=== PATIENT | male | born 1980 | race Caucasian/White ===

== ENCOUNTER 2016-06-06 16:04 | Inpatient (IN) | payer OTHER ==
[2016-06-06 16:26] VITALS: BMI 19.8
--- NOTE | 2016-06-06 17:25 | HP ---
COWS - Scale Resting Pulse: 1= UT 81-100 Sweatin=Flushed/Facial Moisture Restless Observation: 3= Extraneous Movement Pupil Size: 1= Pupils >than Normal Bone or Joint Aches: 2= Severe Diffuse Aches Runny Nose/ Eye Tearin= Runny Nose/Eyes GI Upset > 30mins: 1= Stomach Cramp Tremor Observation: 1= Tremor [place], Not Seen Yawning Observation: 0= None Anxiety or Irritability: 2=Irritable/Anxious Goose Flesh Skin: 0=Smooth Skin COWS Score: 15 Admission ROS S - HPI Chief Complaint: I need help to stop using heroin . Allergies/Adverse Reactions: Allergies Allergy/AdvReac Type Severity Reaction Status Date / Time No Known Allergies Allergy Verified 06/06/16 16:42 History of Present Illness: 36 y/o m pt with h/o heroin dep x 6months seeking detox . Exam Limitations: No Limitations - Ebola screening Have you traveled outside of the country in the last 21 days: No Have you had contact with anyone from an Ebola affected area: No Have you been sick,other than usual withdrawal symptoms: No Do you have a fever: No - Review of Systems Constitutional: Loss of Appetite, Malaise, Changes in sleep, Weakness, Unintentional Wgt. Loss (5lbs x 1 month) EENT: reports: Blurred Vision, Nose Congestion Respiratory: reports: Shortness of Breath Cardiac: reports: No Symptoms Reported, Irregular Heart Rate GI: reports: Nausea, Indigestion, Abdominal cramping : reports: No Symptoms Reported Musculoskeletal: reports: Joint Pain, Muscle Pain, Muscle Weakness Integumentary: reports: Sweating Neuro: reports: Headache Endocrine: reports: No Symptoms Reported Hematology: reports: No Symptoms Reported Psychiatric: reports: Agitated, Anxious Other Systems: Reviewed and Negative Patient History - Patient Medical History Hx Anemia: No Hx Asthma: Yes Hx Chronic Obstructive Pulmonary Disease (COPD): No Hx Cancer: No Hx Cardiac Disorders: No Hx Congestive Heart Failure: No Hx Hypertension: No Hx Hypercholesterolemia: No Hx Pacemaker: No HX Cerebrovascular Accident: No Hx Seizures: No Hx Dementia: No Hx Diabetes: No Hx Gastrointestinal Disorders: No Hx Liver Disease: No Hx Genitourinary Disorders: No Hx Sexually Transmitted Disorders: No Hx Renal Disease (ESRD): No Hx Thyroid Disease: No Hx Human Immunodeficiency Virus (HIV): No (NEG 04/2016) Hx Hepatitis C: No Hx Depression: No Hx Suicide Attempt: No Hx Bipolar Disorder: No Hx Schizophrenia: No - Patient Surgical History Past Surgical History: No Hx Neurologic Surgery: No Hx Cataract Extraction: No Hx Cardiac Surgery: No Hx Lung Surgery: No Hx Breast Surgery: No Hx Breast Biopsy: No Hx Abdominal Surgery: No Hx Appendectomy: No Hx Cholecystectomy: No Hx Genitourinary Surgery: No Hx Section: No Hx Orthopedic Surgery: No Other Surgical History: spinal sx.CERVICAL FUSION Anesthesia Reaction: No - PPD History Previous Implant?: Yes Documented Results: Negative w/o proof PPD to be Administered?: Yes - Reproductive History Patient is a Female of Child Bearing Age (11 -55 yrs old): No - Smoking Cessation Smoking history: Current every day smoker Have you smoked in the past 12 months: Yes Aproximately how many cigarettes per day: 10 Cigars Per Day: 0 Hx Chewing Tobacco Use: No Initiated information on smoking cessation: Yes 'Breaking Loose' booklet given: 06/06/16 - Substance & Tx. History Hx Alcohol Use: No Hx Substance Use: Yes Substance Use Type: Heroin Hx Substance Use Treatment: Yes - Substances Abused Heroin Route: Inhalation Frequency: Daily Amount used: 1 bundle Age of first use: 2 Date of Last Use: 06/06/16 Family Disease History - Family Disease History Family History: Denies Admission Physical Exam S - Vital Signs Vital Signs: Vital Signs - 24 hr 06/06/16 16:24 Temperature 98.2 F Pulse Rate 88 Respiratory 18 Rate Blood Pressure 119/74 - Physical General Appearance: Yes: Appropriately Dressed, Thin, Irritable, Sweating, Anxious HEENTM: Yes: EOMI, Hearing grossly Normal, Normocephalic, Normal Voice, RAZ, Nasal Congestion, Rhinorrhea Respiratory: Yes: Chest Non-Tender, Lungs Clear, Normal Breath Sounds, No Respiratory Distress Neck: Yes: Supple, Trachea in good position, Other (well healed left ant . scar) Breast: Yes: Within Normal Limits Cardiology: Yes: Regular Rhythm, Regular Rate, S1, S2 Abdominal: Yes: Non Tender, Flat, Soft, Increased Bowel Sounds Genitourinary: Yes: Within Normal Limits Back: Yes: Within Normal Limits Musculoskeletal: Yes: Back pain, Muscle Pain Extremities: Yes: Tremors Neurological: Yes: technical support director II-XII NML intact, Fully Oriented, Alert, Normal Response Lymphatic: Yes: Within Normal Limits - Diagnostic (1) Opioid dependence with withdrawal Current Visit: Yes Status: Chronic (2) Nicotine dependence Current Visit: Yes Status: Chronic Qualifiers: Nicotine product type: cigarettes Substance use status: uncomplicated Qualified Code(s): F17.210 - Nicotine dependence, cigarettes, uncomplicated (3) H/O cervical spinal arthrodesis Current Visit: No Status: Chronic Cleared for Admission [facility] - Detox or Rehab [facility] Level of Care: Medically Managed Detox Regimen/Protocol: Methadone [facility] Breath Alcohol Content Breath Alcohol Content: 0 Urine Drug Screen - Results Drug Screen Negative: No Urine Drug Screen Results: OPI-Opiates, AMP-Amphetamines, OXY-Oxycodone
[2016-06-06] MEDS ORDERED: MENTHOL/PHENOL 1 EACH UD MM PRN (17:38)
[2016-06-06] MEDS ORDERED: MAGNESIUM HYDROX 2400MG/30ML ORAL SUSPENSION 30 ML CUP PO PRN (17:38)
[2016-06-06] MEDS ORDERED: MAG HYDROX/AL HYDROX/SIMETH 30 ML UNIT-DOSE CUP PO PRN (17:38)
[2016-06-06] MEDS ORDERED: hydrOXYzine PAMOATE 25 MG CAPSULE (FP) PO PRN (17:38)
[2016-06-06] MEDS ORDERED: NICOTINE POLACRILEX 4 MG GUM BC PRN (17:38)
[2016-06-06] MEDS ORDERED: MAGNESIUM CITRATE 300 ML BOTTLE PO PRN (17:38)
[2016-06-06] MEDS ORDERED: guaiFENesin/D-METHORPHAN HB 10 ML UNIT-DOSE CUPS PO PRN (17:38)
[2016-06-06] MEDS ORDERED: LOPERAMIDE HCL 2 MG CAPSULE PO PRN (17:38)
[2016-06-06] MEDS ORDERED: ACETAMINOPHEN 325 MG TABLET (FP) PO PRN (17:38)
[2016-06-06] MEDS ORDERED: IBUPROFEN 400 MG TABLET (FP) PO PRN (17:38)
[2016-06-06] MEDS ORDERED: ALBUTEROL SO4 6.7 GM HFA INHALER IH PRN (17:39)
[2016-06-06] MEDS ORDERED: METHADONE HCL 10 MG TABLET (FOR DETOX USE ONLY) PO ONE ×2 (18:30→23:00)
[2016-06-06] MEDS: diazePAM 5 MG TABLET PO PRN ×2 (18:34→22:36)
[2016-06-06] MEDS: P-EPHED 60MG/TRIPROLIDI 2.5MG TABLET PO PRN (18:36)
[2016-06-06] MEDS: diphenhydrAMINE HCL 50 MG CAPSULE PO PRN (22:35)
[2016-06-06] MEDS: THIAMINE HCL 100 MG TABLET (FP) PO SCH (22:36)
[2016-06-07] MEDS: diazePAM 5 MG TABLET PO PRN ×4 (05:57→22:10)
[2016-06-07] MEDS ORDERED: METHADONE HCL 10 MG TABLET (FOR DETOX USE ONLY) PO ONE (10:00)
[2016-06-07 10:17] LABS: MCH 31.3 pg (25.7-33.7); MEAN CELL VOLUME 91.9 fl (80-96); MEAN PLT VOLUME 7.9 fl (7.5-11.1); PLATELET COUNT 237 K/MM3 (134-434); RDW 13.1 % (11.9-15.9); WHITE BLOOD COUNT 7.2 K/mm3 (4.0-10.0)
[2016-06-07] MEDS: NICOTINE 21 MG/24 HOURS TOPICAL PATCH TD SCH (10:24)
[2016-06-07] MEDS: PRENATAL VITAMINS W/ FOLIC ACID TABLET (FP) PO SCH (10:24)
--- NOTE | 2016-06-07 10:38 | PN ---
BHS COWS - Scale Resting Pulse: 0= ID 80 or Below Sweatin=Flushed/Facial Moisture Restless Observation: 1= Difficult to Sit Still Pupil Size: 0= Normal to Room Light Bone or Joint Aches: 2= Severe Diffuse Aches Runny Nose/ Eye Tearin= Runny Nose/Eyes GI Upset > 30mins: 2= Nausea/Diarrhea Tremor Observation of Outstretched Hands: 2= Slight Tremor Visible Yawning Observation: 2= >3x During Session Anxiety or Irritability: 2=Irritable/Anxious Goose Flesh Skin: 3=Piloerection COWS Score: 18 BHS Progress Note (SOAP) Subjective: agitation anxiety sweats nasal congestion body aches Objective: 06/07/16 10:41 Vital Signs Temperature 97.2 F L 06/07/16 10:16 Pulse Rate 74 06/07/16 10:16 Respiratory Rate 20 06/07/16 10:16 Blood Pressure 112/70 06/07/16 10:16 O2 Sat by Pulse Oximetry (%) Laboratory Tests 06/07/16 07:00 WBC 7.2 RBC 4.79 Hgb 15.0 Hct 44.0 MCV 91.9 MCHC 34.0 RDW 13.1 Plt Count 237 MPV 7.9 labs pending awake/alert ambulating no acute distress Assessment: 06/07/16 10:41 withdrawal sx Plan: continue detox increase fluids labs pending
[2016-06-07 11:17] LABS: ALBUMIN 3.7 g/dl (3.4-5.0); ALK PHOS 75 U/L (45-117); ANION GAP 11 (8-16); BILIRUBIN,TOTAL 0.5 mg/dL (0.2-1.0); CALCIUM 9.6 mg/dL (8.5-10.1); CO2 27 mmol/L (21-32); CREATININE 0.9 mg/dL (0.7-1.3); GLUCOSE,RANDOM 83 mg/dL (74-106); SGOT/AST 17 U/L (15-37); SGPT/ALT 19 U/L (12-78); TOT PROT 7.1 g/dl (6.4-8.2)
[2016-06-07] MEDS ORDERED: PNEUMOC 13-VAL CONJ-DIP CRM/PF 0.5 ML DISP.SYRIN IM ONE (12:00)
[2016-06-07] MEDS ORDERED: PNEUMOCOCCAL 23 VACCINE 0.5 ML VIAL IM ONE (12:00)
[2016-06-07] MEDS ORDERED: INFLUENZA VACCINE 45 MCG/0.5 ML (MDV 16-17) IM ONE (12:00)
--- NOTE | 2016-06-07 13:51 | EKG ---
Test Reason : Blood Pressure : / mmHG Vent. Rate : 072 BPM Atrial Rate : 072 BPM P-R Int : 140 ms QRS Dur : 102 ms QT Int : 388 ms P-R-T Axes : 080 091 049 degrees QTc Int : 424 ms NORMAL SINUS RHYTHM POSSIBLE LEFT ATRIAL ENLARGEMENT RIGHTWARD AXIS PULMONARY DISEASE PATTERN ABNORMAL ECG NO PREVIOUS ECGS AVAILABLE Confirmed by SMOOTH ALMANZAR, FABIO ([id number]) on 06/07/2016 1:51:39 PM Referred By: Edy Nichols Confirmed By:FABIO REBOLLAR MD
[2016-06-07 14:14] LABS: URINE APPEARANCE SLCLOUDY; URINE BILIRUBIN NEGATIVE (NEGATIVE); URINE BLOOD NEGATIVE (NEGATIVE); URINE COLOR AMBER; URINE GLUCOSE (UA) NEGATIVE (NEGATIVE); URINE KETONE TRACE (NEGATIVE); URINE LEUK ESTERASE NEGATIVE (NEGATIVE); URINE NITRITE NEGATIVE (NEGATIVE); URINE UROBILINOGEN NEGATIVE E.U./dl (0.2-1.0)
[2016-06-07 14:24] LABS: URINE PROTEIN 1+ (NEGATIVE)
[2016-06-07 15:35] LABS: URINE HYALINE CAST 8 /lpf; URINE MUCUS MANY; URINE RBC 1 /hpf (0-3); URINE WBC 5 /hpf (3-5)
[2016-06-07] MEDS: THIAMINE HCL 100 MG TABLET (FP) PO SCH (22:10)
[2016-06-08] MEDS ORDERED: METHADONE HCL 5 MG TABLET (FOR DETOX USE ONLY) PO ONE (10:00)
[2016-06-08] MEDS: NICOTINE 21 MG/24 HOURS TOPICAL PATCH TD SCH (10:16)
[2016-06-08] MEDS: diazePAM 5 MG TABLET PO PRN ×2 (10:17→22:04)
[2016-06-08] MEDS: PRENATAL VITAMINS W/ FOLIC ACID TABLET (FP) PO SCH (10:17)
--- NOTE | 2016-06-08 11:48 | PN ---
S CIWA - CIWA Score Nausea/Vomitin Muscle Tremors: None Anxiety: 4-Mod. Anxious/Guarded Agitation: 1-Slight > Activity Paroxysmal Sweats: 3 Orientation: 4Disoriented Place/Person Tacttile Disturbances: 2-Mild Itch/Numbness/Burn Auditory Disturbances: 0-None Visual Disturbances: 1-Very Mild Sensitivity Headache: 0-None Present CIWA-Ar Total Score: 17 BHS Progress Note (SOAP) Subjective: Sweating, Chills, Body aches, Interrupted sleep. Objective: PT. A & O X 2 (DISORIENTED TO LOCATION). PT. OBSERVED AMBULATING ON UNIT. 06/08/16 11:46 Vital Signs Temperature 96.8 F L 06/08/16 09:48 Pulse Rate 72 06/08/16 09:48 Respiratory Rate 18 06/08/16 09:48 Blood Pressure 118/72 06/08/16 09:48 O2 Sat by Pulse Oximetry (%) Laboratory Last Values WBC 7.2 K/mm3 (4.0-10.0) 06/07/16 07:00 RBC 4.79 M/mm3 (4.00-5.60) 06/07/16 07:00 Hgb 15.0 GM/dL (11.7-16.9) 06/07/16 07:00 Hct 44.0 % (35.4-49) 06/07/16 07:00 MCV 91.9 fl (80-96) 06/07/16 07:00 MCHC 34.0 g/dl (32.0-35.9) 06/07/16 07:00 RDW 13.1 % (11.9-15.9) 06/07/16 07:00 Plt Count 237 K/MM3 (134-434) 06/07/16 07:00 MPV 7.9 fl (7.5-11.1) 06/07/16 07:00 Sodium 143 mmol/L (136-145) 06/07/16 07:00 Potassium 3.8 mmol/L (3.5-5.1) 06/07/16 07:00 Chloride 105 mmol/L (98-107) 06/07/16 07:00 Carbon Dioxide 27 mmol/L (21-32) 06/07/16 07:00 Anion Gap 11 (8-16) 06/07/16 07:00 BUN 10 mg/dL (7-18) 06/07/16 07:00 Creatinine 0.9 mg/dL (0.7-1.3) 06/07/16 07:00 Creat Clearance w eGFR > 60 (>60) 06/07/16 07:00 Random Glucose 83 mg/dL (74-106) 06/07/16 07:00 Calcium 9.6 mg/dL (8.5-10.1) 06/07/16 07:00 Total Bilirubin 0.5 mg/dL (0.2-1.0) 06/07/16 07:00 AST 17 U/L (15-37) 06/07/16 07:00 ALT 19 U/L (12-78) 06/07/16 07:00 Alkaline Phosphatase 75 U/L (45-117) 06/07/16 07:00 Total Protein 7.1 g/dl (6.4-8.2) 06/07/16 07:00 Albumin 3.7 g/dl (3.4-5.0) 06/07/16 07:00 Urine Color [place] 06/07/16 10:00 Urine Appearance Slcloudy 06/07/16 10:00 Urine pH 5.0 (5.0-8.0) 06/07/16 10:00 Ur Specific [place] 1.035 (1.001-1.035) 06/07/16 10:00 Urine Protein 1+ (NEGATIVE) H 06/07/16 10:00 Urine Glucose (UA) Negative (NEGATIVE) 06/07/16 10:00 Urine Ketones Trace (NEGATIVE) H 06/07/16 10:00 Urine Blood Negative (NEGATIVE) 06/07/16 10:00 Urine Nitrite Negative (NEGATIVE) 06/07/16 10:00 Urine Bilirubin Negative (NEGATIVE) 06/07/16 10:00 Urine Urobilinogen Negative E.U./dl (0.2-1.0) 06/07/16 10:00 Ur Leukocyte Esterase Negative (NEGATIVE) 06/07/16 10:00 Urine RBC 1 /hpf (0-3) 06/07/16 10:00 Urine WBC 5 /hpf (3-5) 06/07/16 10:00 Hyaline Casts 8 /lpf 06/07/16 10:00 Urine Mucus Many 06/07/16 10:00 RPR Titer Nonreactive (NONREACTIVE) 06/07/16 07:00 Hepatitis C Antibody <0.1 s/co ratio (0.0-0.9) 06/06/16 07:00 LABS NOTED. Assessment: 06/08/16 11:48 WITHDRAWAL SYMPTOMS. Plan: CONTINUE DETOX. INCREASE PO FLUIDS.
[2016-06-08] MEDS: P-EPHED 60MG/TRIPROLIDI 2.5MG TABLET PO PRN (12:22)
[2016-06-08] MEDS: THIAMINE HCL 100 MG TABLET (FP) PO SCH (22:04)
[2016-06-08] MEDS: diphenhydrAMINE HCL 50 MG CAPSULE PO PRN (22:17)
[2016-06-09] MEDS: diazePAM 5 MG TABLET PO PRN (05:32)
[2016-06-09] MEDS ORDERED: METHADONE HCL 5 MG TABLET (FOR DETOX USE ONLY) PO ONE (10:00)
--- NOTE | 2016-06-09 10:19 | PN ---
BHS Progress Note (SOAP) Subjective: irritable sweats shakes interrupted sleep Objective: 06/09/16 10:18 Vital Signs Temperature 97.3 F L 06/09/16 10:10 Pulse Rate 74 06/09/16 10:10 Respiratory Rate 16 06/09/16 10:10 Blood Pressure 106/68 06/09/16 10:10 O2 Sat by Pulse Oximetry (%) awake/alert ambulating no acute distress Assessment: 06/09/16 10:19 withdrawal sx Plan: continue detox increase fluids
[2016-06-09] MEDS: PRENATAL VITAMINS W/ FOLIC ACID TABLET (FP) PO SCH (10:26)
[2016-06-09] MEDS: NICOTINE 21 MG/24 HOURS TOPICAL PATCH TD SCH (10:26)
[2016-06-09] MEDS: diphenhydrAMINE HCL 50 MG CAPSULE PO PRN (22:10)
[2016-06-09] MEDS: THIAMINE HCL 100 MG TABLET (FP) PO SCH (22:10)
[2016-06-10] MEDS ORDERED: METHADONE HCL 10 MG TABLET (FOR DETOX USE ONLY) PO ONE (10:00)
[2016-06-10] MEDS: NICOTINE 21 MG/24 HOURS TOPICAL PATCH TD SCH (10:03)
[2016-06-10] MEDS: PRENATAL VITAMINS W/ FOLIC ACID TABLET (FP) PO SCH (10:03)
--- NOTE | 2016-06-10 11:01 | PN ---
S Progress Note (SOAP) Subjective: ALERT,IRRITABLE,ANXIOUS,INTERRUPTED SLEEP Objective: 06/10/16 11:00 Vital Signs Temperature 98.7 F 06/10/16 10:22 Pulse Rate 71 06/10/16 10:22 Respiratory Rate 16 06/10/16 10:22 Blood Pressure 112/80 06/10/16 10:22 O2 Sat by Pulse Oximetry (%) Assessment: 06/10/16 11:00 WITHDRAWAL SYMPTOM Plan: CONTINUE DETOX,DISCHARGE IN AM
[2016-06-10] MEDS ORDERED: CYCLOBENZAPRINE HCL 10 MG TABLET (FP) PO ONE (12:09)
[2016-06-10] MEDS ORDERED: cloNIDine HCL 0.1 MG TABLET PO ONE (12:10)
[2016-06-10] MEDS ORDERED: CYCLOBENZAPRINE HCL 10 MG TABLET (FP) PO PRN (12:10)
[2016-06-10] MEDS: THIAMINE HCL 100 MG TABLET (FP) PO SCH (22:09)
[2016-06-10] MEDS: cloNIDine HCL 0.1 MG TABLET PO SCH (22:10)
[2016-06-10] MEDS: diphenhydrAMINE HCL 50 MG CAPSULE PO PRN (22:10)
[2016-06-11] MEDS ORDERED: METHADONE HCL 5 MG TABLET (FOR DETOX USE ONLY) PO ONE (06:00)
--- NOTE | 2016-06-11 08:56 | PN ---
S Progress Note (SOAP) Subjective: ALERT,NO COMPLAINT Objective: 06/11/16 08:55 Vital Signs Temperature 97.5 F L 06/11/16 06:45 Pulse Rate 63 06/11/16 06:45 Respiratory Rate 16 06/11/16 06:45 Blood Pressure 101/65 06/11/16 06:45 O2 Sat by Pulse Oximetry (%) Assessment: 06/11/16 08:55 DETOX COMPLETED,NO WITHDRAWAL SYMPTOM Plan: DISCHARGE TODAY,FOLLOW UP WITH [facility]
--- NOTE | 2016-06-11 08:58 | DS ---
[facility] Detox Discharge Summary Admission Date: 06/06/16 Discharge Date: 06/11/16 - History Present History: Opioid Dependence Additional Comments: FOLLOW UP WITH REVELATION [facility]EMENT Pertinent Past History: NECK PAIN ASTHMA HISTORY OF CERVICAL SPINE ARTHRODESIS - Physical Exam Results Vital Signs: Vital Signs Temperature 97.5 F L 06/11/16 06:45 Pulse Rate 63 06/11/16 06:45 Respiratory Rate 16 06/11/16 06:45 Blood Pressure 101/65 06/11/16 06:45 O2 Sat by Pulse Oximetry (%) Pertinent Admission Physical Exam Findings: WITHDRAWAL SYMPTOM - Treatment Hospital Course: Detox Protocol Followed, Detoxed Safely, Responded well, Discharged Condition Good, Rehab Referral Accepted Patient has Accepted a Rehab Referral to: [facility] - Medication Discharge Medications: Ambulatory Orders Albuterol Sulfate Inhaler - [Ventolin Hfa Inhaler -] 2 inh PO Q4H PRN 06/06/16 - Diagnosis (1) Nicotine dependence Current Visit: Yes Status: Acute Qualifiers: Nicotine product type: cigarettes Substance use status: uncomplicated Qualified Code(s): F17.210 - Nicotine dependence, cigarettes, uncomplicated (2) Opioid dependence with withdrawal Current Visit: Yes Status: Acute (3) Asthma Current Visit: Yes Status: Acute - AMA Did Patient Leave Against Medical Advice: No
[2016-06-11 09:51] VITALS: BP 111/58; PULSE 69; TEMP 96.4
[2016-06-11] MEDS: cloNIDine HCL 0.1 MG TABLET PO SCH (10:47)
[2016-06-11] MEDS: PRENATAL VITAMINS W/ FOLIC ACID TABLET (FP) PO SCH (10:47)
[2016-06-11] MEDS: NICOTINE 21 MG/24 HOURS TOPICAL PATCH TD SCH (10:47)
== END 2016-06-11 11:32 | disposition other institution (70) | DRG 773 ==
LOC: YASAS 16:04 → Y6N 18:15
PROVIDERS: ADMIT Internal Medicine Addiction Medicine; ATTEND Internal Medicine Addiction Medicine
PROC: HZ2ZZZZ Detoxification Services for Substance Abuse Treatment (ICD-10-PCS; principal; 2016-06-11)
DX: F11.23 Opioid dependence with withdrawal (principal); J45.909 Unspecified asthma, uncomplicated
CPT/HCPCS: 36415; 80053; 81003; 81015; 85027; 86593; 90732; 93005; 93010; G0009

== ENCOUNTER 2016-06-11 11:56 | Inpatient (IN) | payer OTHER ==
[2016-06-11] MEDS ORDERED: hydrOXYzine PAMOATE 50 MG CAPSULE (FP) PO PRN (15:46)
[2016-06-11] MEDS ORDERED: guaiFENesin/D-METHORPHAN HB 10 ML UNIT-DOSE CUPS PO PRN (15:46)
[2016-06-11] MEDS ORDERED: LOPERAMIDE HCL 2 MG CAPSULE PO PRN (15:46)
[2016-06-11] MEDS ORDERED: MENTHOL/PHENOL 1 EACH UD MM PRN (15:46)
[2016-06-11] MEDS ORDERED: ACETAMINOPHEN 325 MG TABLET (FP) PO PRN (15:46)
[2016-06-11] MEDS ORDERED: MAG HYDROX/AL HYDROX/SIMETH 30 ML UNIT-DOSE CUP PO PRN (15:46)
[2016-06-11] MEDS ORDERED: MAGNESIUM HYDROX 2400MG/30ML ORAL SUSPENSION 30 ML CUP PO PRN (15:46)
[2016-06-11] MEDS ORDERED: P-EPHED 60MG/TRIPROLIDI 2.5MG TABLET PO PRN (15:46)
[2016-06-11] MEDS ORDERED: NICOTINE POLACRILEX 2 MG GUM BUC PRN (15:46)
[2016-06-11] MEDS ORDERED: MAGNESIUM CITRATE 300 ML BOTTLE PO PRN (15:46)
[2016-06-11] MEDS ORDERED: ALBUTEROL SO4 6.7 GM HFA INHALER IH PRN (15:49)
--- NOTE | 2016-06-11 15:49 | HP ---
[facility] Rehab Assess/Revision - Admission History Admitted to Rehab from: [facility] Date of Admission to Rehab: 06/11/16 - Findings Detox History & Physical reviewed: Yes Concur with findings: Yes Comments/Additional Findings: for rehab as protocol
[2016-06-11] MEDS: NICOTINE 21 MG/24 HOURS TOPICAL PATCH TD SCH (16:42)
[2016-06-11] MEDS: THIAMINE HCL 100 MG TABLET (FP) PO SCH (21:42)
[2016-06-11] MEDS: diphenhydrAMINE HCL 50 MG CAPSULE PO PRN (21:43)
[2016-06-12] MEDS: PRENATAL VITAMINS W/ FOLIC ACID TABLET (FP) PO SCH (10:20)
[2016-06-12] MEDS: NICOTINE 21 MG/24 HOURS TOPICAL PATCH TD SCH (10:20)
[2016-06-12] MEDS ORDERED: cloNIDine HCL 0.1 MG TABLET PO ONE (12:21)
--- NOTE | 2016-06-12 15:34 | HP ---
Psychiatrist Admission - Data Date of interview: 06/12/16 Admission source: 6N Identifying data: This is the first 5N inpatient rehabilitation admission for this 36 year old male father of 3 (12,11 and 10), unemployed and residing in the residential. Medical History: Asthma, smokes cigarettes 10 a day Psychiatric History: denies history of psychaitric treatment, but reports feeling anxious. Physical/Sexual Abuse/Trauma History: denies history of sexual, physical and verbal abuse. Vital Signs: Vital Signs - 24 hr 06/12/16 06/12/16 06/12/16 00:37 03:30 07:28 Temperature 98.0 F Pulse Rate 65 Respiratory 18 18 16 Rate Blood Pressure 110/64 Allergies/Adverse Reactions: Allergies Allergy/AdvReac Type Severity Reaction Status Date / Time No Known Allergies Allergy Verified 06/11/16 12:51 Date of last physical exam: 06/06/16 Concur with the findings of this exam: Yes - Substance Abuse/Tx History Hx Alcohol Use: No Hx Substance Use: Yes Substance Use Type: Heroin (20 bags a day) Hx Substance Use Treatment: No (this is the first rehab. tx) - Admission Criteria Previous failed treatment: No Poor recovery environment: Yes Comorbidities: No Lacks judgement: Yes Mental Status Exam - Mental Status Exam Alert and Oriented to: Time, Place, Person Cognitive Function: Good Patient Appearance: Well Groomed Mood: Sad, Anxious Affect: Appropriate, Mood Congruent Patient Behavior: Appropriate, Cooperative Speech Pattern: Clear, Appropriate Voice Loudness: Normal Thought Process: Intact, Goal Oriented Thought Disorder: Not Present Hallucinations: Denies Suicidal Ideation: Denies Homicidal Ideation: Denies Insight/Judgement: Fair Sleep: Fair Appetite: Poor (lost 8 lbs), Weight loss Muscle strength/Tone: Normal Gait/Station: Normal Psychiatric Findings - Problem List ([place] 1, 2,3) (1) Asthma Current Visit: No Status: Acute (2) Nicotine dependence Current Visit: No Status: Acute Qualifiers: Nicotine product type: cigarettes Substance use status: uncomplicated Qualified Code(s): F17.210 - Nicotine dependence, cigarettes, uncomplicated (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
[2016-06-12] MEDS ORDERED: hydrOXYzine PAMOATE 50 MG CAPSULE (FP) PO PRN (15:40)
[2016-06-12] MEDS: THIAMINE HCL 100 MG TABLET (FP) PO SCH (21:39)
[2016-06-12] MEDS: diphenhydrAMINE HCL 50 MG CAPSULE PO PRN (21:39)
[2016-06-12] MEDS: cloNIDine HCL 0.1 MG TABLET PO SCH (21:39)
[2016-06-13] MEDS: PRENATAL VITAMINS W/ FOLIC ACID TABLET (FP) PO SCH (10:00)
[2016-06-13] MEDS: NICOTINE 21 MG/24 HOURS TOPICAL PATCH TD SCH (10:00)
[2016-06-13] MEDS: cloNIDine HCL 0.1 MG TABLET PO SCH ×2 (10:00→21:30)
--- NOTE | 2016-06-13 15:38 | PN ---
Psychiatric Progress Note Vital Signs: Vital Signs Period Temp Pulse Resp BP Sys/Brock Pulse Ox Last 24 Hr 97.8 F 66-80 18-18 106-136/66-91 Date of Session: 06/13/16 Chief Complaint:: "anxiety, insomnia" HPI: Patient is addressing opioid, nicotine dependence opioid induced anxiety. ROS: asthma Current Medications: Active Medications Generic Name Dose Route Start Last Admin Trade Name Freq PRN Reason Stop Dose Admin Acetaminophen 650 mg 06/11/16 15:46 Tylenol - PO Q4H PRN FEVER OR PAIN Al Hydroxide/Mg Hydroxide 30 ml 06/11/16 15:46 Mylanta Oral Suspension - PO Q6H PRN DYSPEPSIA Albuterol Sulfate 2 puff 06/11/16 15:49 Ventolin Hfa Inhaler - IH Q4H PRN ASTHMA Clonidine 0.1 mg 06/12/16 22:00 06/13/16 10:00 Catapres - PO 0.1 mg BID LISHA Administration Diphenhydramine HCl 50 mg 06/11/16 15:46 06/12/16 21:39 Benadryl - PO 50 mg HSMR1 PRN Administration FOR ITCHING Eucalyptus/Menthol/Phenol/Sorbitol 1 each 06/11/16 15:46 Cepastat Lozenge - MM Q4H PRN SORE THROAT Guaifenesin 10 ml 06/11/16 15:46 Robitussin Dm - PO Q6H PRN COUGH Hydroxyzine Pamoate 50 mg 06/12/16 15:40 Vistaril - PO Q4H PRN ANXIETY Ibuprofen 400 mg 06/11/16 15:46 Motrin - PO Q6H PRN PAIN Loperamide HCl 4 mg 06/11/16 15:46 Imodium - PO Q6H PRN DIARRHEA Magnesium Citrate 300 ml 06/11/16 15:46 Citroma - PO 06/13/16 15:47 Q48H PRN CONSTIPATION Magnesium Hydroxide 30 ml 06/11/16 15:46 Milk Of Magnesia - PO DAILY PRN CONSTIPATION Mirtazapine 15 mg 06/13/16 22:00 Remeron - PO HS LISHA Nicotine 21 mg 06/11/16 16:00 06/13/16 10:00 Nicoderm Patch - TD 21 mg DAILY LISHA Administration Nicotine Polacrilex 2 mg 06/11/16 15:46 Nicorette Gum - BUC Q2H PRN NICOTINE REPLACEMENT RX Multivit/Folic Acid/Iron 1 tab 06/12/16 10:00 06/13/16 10:00 Vitamins (Sjr) - PO 1 tab DAILY LISHA Administration Pseudoephedrine/Triprolidine 1 combo 06/11/16 15:46 Actifed - PO TID PRN NASAL CONGESTION Thiamine HCl 100 mg 06/11/16 22:00 06/12/16 21:39 Vitamin B1 - PO 100 mg HS LISHA Administration Medication(s) Change(s): add Remeron 15 mg po hs Current Side Effect: No Lab tests ordered: No Lab tests reviewed: Yes Provider note:: Patient reports he is very anxious and unable to sleep, gets more anxious when has a restful nights, states that Benardyl not effective, discussed indications and properties of Remeron, sleeping hygiene discussed, psychoeducation provided, patient agreed to start, will add medication and continue to monitor progress. Total face to face time:: 30 Mental Status Exam - Mental Status Exam Alert and Oriented to: Time, Place, Person Cognitive Function: Good Patient Appearance: Well Groomed Mood: Depressed, Sad, Anxious Patient Behavior: Appropriate, Cooperative Speech Pattern: Clear, Appropriate Voice Loudness: Normal Thought Process: Intact, Goal Oriented Thought Disorder: Not Present Hallucinations: Denies Suicidal Ideation: Denies Homicidal Ideation: Denies Insight/Judgement: Fair Sleep: Fair Appetite: Good Muscle strength/Tone: Normal Gait/Station: Normal Psychiatric Treatment Plan - Problem List (1) Asthma Current Visit: No (2) Nicotine dependence Current Visit: No Qualifiers: Nicotine product type: cigarettes Substance use status: uncomplicated Qualified Code(s): F17.210 - Nicotine dependence, cigarettes, uncomplicated (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
[2016-06-13] MEDS: THIAMINE HCL 100 MG TABLET (FP) PO SCH (21:30)
[2016-06-13] MEDS: MIRTAZAPINE 15 MG TABLET (FP) PO SCH (21:31)
[2016-06-14] MEDS: NICOTINE 21 MG/24 HOURS TOPICAL PATCH TD SCH (10:12)
[2016-06-14] MEDS: cloNIDine HCL 0.1 MG TABLET PO SCH ×2 (10:12→21:09)
[2016-06-14] MEDS: PRENATAL VITAMINS W/ FOLIC ACID TABLET (FP) PO SCH (10:12)
[2016-06-14] MEDS: THIAMINE HCL 100 MG TABLET (FP) PO SCH (21:09)
[2016-06-14] MEDS: MIRTAZAPINE 15 MG TABLET (FP) PO SCH (21:09)
[2016-06-14] MEDS: IBUPROFEN 400 MG TABLET (FP) PO PRN (21:10)
[2016-06-15] MEDS: cloNIDine HCL 0.1 MG TABLET PO SCH ×2 (10:15→21:40)
[2016-06-15] MEDS: PRENATAL VITAMINS W/ FOLIC ACID TABLET (FP) PO SCH (10:15)
[2016-06-15] MEDS: NICOTINE 21 MG/24 HOURS TOPICAL PATCH TD SCH (10:15)
[2016-06-15] MEDS: THIAMINE HCL 100 MG TABLET (FP) PO SCH (21:40)
[2016-06-15] MEDS: MIRTAZAPINE 15 MG TABLET (FP) PO SCH (21:40)
[2016-06-16] MEDS: PRENATAL VITAMINS W/ FOLIC ACID TABLET (FP) PO SCH (10:13)
[2016-06-16] MEDS: cloNIDine HCL 0.1 MG TABLET PO SCH ×2 (10:13→21:10)
[2016-06-16] MEDS: NICOTINE 21 MG/24 HOURS TOPICAL PATCH TD SCH (10:14)
--- NOTE | 2016-06-16 14:34 | PN ---
BHS Progress Note Note: patient c/o anxiety and insomnia, will increase Remeron 30 mg po hs
[2016-06-16] MEDS: THIAMINE HCL 100 MG TABLET (FP) PO SCH (21:10)
[2016-06-16] MEDS: MIRTAZAPINE 30 MG TABLET (FP) PO SCH (21:11)
[2016-06-17] MEDS: NICOTINE 21 MG/24 HOURS TOPICAL PATCH TD SCH (10:32)
[2016-06-17] MEDS: cloNIDine HCL 0.1 MG TABLET PO SCH ×2 (10:32→21:45)
[2016-06-17] MEDS: PRENATAL VITAMINS W/ FOLIC ACID TABLET (FP) PO SCH (10:32)
[2016-06-17] MEDS: MIRTAZAPINE 30 MG TABLET (FP) PO SCH (21:45)
[2016-06-17] MEDS: THIAMINE HCL 100 MG TABLET (FP) PO SCH (21:45)
[2016-06-18] MEDS: NICOTINE 21 MG/24 HOURS TOPICAL PATCH TD SCH (10:23)
[2016-06-18] MEDS: PRENATAL VITAMINS W/ FOLIC ACID TABLET (FP) PO SCH (10:23)
[2016-06-18] MEDS: cloNIDine HCL 0.1 MG TABLET PO SCH ×2 (10:23→21:12)
[2016-06-18] MEDS: THIAMINE HCL 100 MG TABLET (FP) PO SCH (21:12)
[2016-06-18] MEDS: MIRTAZAPINE 30 MG TABLET (FP) PO SCH (21:12)
[2016-06-18] MEDS: IBUPROFEN 400 MG TABLET (FP) PO PRN (21:14)
[2016-06-19] MEDS: NICOTINE 21 MG/24 HOURS TOPICAL PATCH TD SCH (09:40)
[2016-06-19] MEDS: PRENATAL VITAMINS W/ FOLIC ACID TABLET (FP) PO SCH (09:40)
[2016-06-19] MEDS: cloNIDine HCL 0.1 MG TABLET PO SCH ×2 (09:40→21:11)
[2016-06-19] MEDS: THIAMINE HCL 100 MG TABLET (FP) PO SCH (21:11)
[2016-06-19] MEDS: MIRTAZAPINE 30 MG TABLET (FP) PO SCH (21:11)
[2016-06-20] MEDS: PRENATAL VITAMINS W/ FOLIC ACID TABLET (FP) PO SCH (09:40)
[2016-06-20] MEDS: NICOTINE 21 MG/24 HOURS TOPICAL PATCH TD SCH (09:40)
[2016-06-20] MEDS: cloNIDine HCL 0.1 MG TABLET PO SCH ×2 (09:40→21:43)
[2016-06-20] MEDS: MIRTAZAPINE 30 MG TABLET (FP) PO SCH (21:43)
[2016-06-20] MEDS: THIAMINE HCL 100 MG TABLET (FP) PO SCH (21:44)
[2016-06-21] MEDS: cloNIDine HCL 0.1 MG TABLET PO SCH ×2 (09:47→21:31)
[2016-06-21] MEDS: PRENATAL VITAMINS W/ FOLIC ACID TABLET (FP) PO SCH (09:47)
[2016-06-21] MEDS: NICOTINE 21 MG/24 HOURS TOPICAL PATCH TD SCH (09:48)
[2016-06-21] MEDS: THIAMINE HCL 100 MG TABLET (FP) PO SCH (21:31)
[2016-06-21] MEDS: MIRTAZAPINE 30 MG TABLET (FP) PO SCH (22:00)
[2016-06-22] MEDS: PRENATAL VITAMINS W/ FOLIC ACID TABLET (FP) PO SCH (10:14)
[2016-06-22] MEDS: cloNIDine HCL 0.1 MG TABLET PO SCH ×2 (10:14→22:04)
[2016-06-22] MEDS: NICOTINE 21 MG/24 HOURS TOPICAL PATCH TD SCH (10:14)
[2016-06-22] MEDS: MIRTAZAPINE 30 MG TABLET (FP) PO SCH (22:04)
[2016-06-22] MEDS: THIAMINE HCL 100 MG TABLET (FP) PO SCH (22:04)
[2016-06-23] MEDS: PRENATAL VITAMINS W/ FOLIC ACID TABLET (FP) PO SCH (10:01)
[2016-06-23] MEDS: NICOTINE 21 MG/24 HOURS TOPICAL PATCH TD SCH (10:01)
[2016-06-23] MEDS: cloNIDine HCL 0.1 MG TABLET PO SCH ×2 (10:01→21:50)
[2016-06-23] MEDS: MIRTAZAPINE 30 MG TABLET (FP) PO SCH (21:50)
[2016-06-23] MEDS: THIAMINE HCL 100 MG TABLET (FP) PO SCH (21:50)
[2016-06-24] MEDS: cloNIDine HCL 0.1 MG TABLET PO SCH ×2 (10:33→21:37)
[2016-06-24] MEDS: PRENATAL VITAMINS W/ FOLIC ACID TABLET (FP) PO SCH (10:33)
[2016-06-24] MEDS: NICOTINE 21 MG/24 HOURS TOPICAL PATCH TD SCH (10:33)
[2016-06-24] MEDS: THIAMINE HCL 100 MG TABLET (FP) PO SCH (21:37)
[2016-06-24] MEDS: MIRTAZAPINE 30 MG TABLET (FP) PO SCH (21:37)
[2016-06-25] MEDS: cloNIDine HCL 0.1 MG TABLET PO SCH ×2 (10:22→21:16)
[2016-06-25] MEDS: PRENATAL VITAMINS W/ FOLIC ACID TABLET (FP) PO SCH (10:22)
[2016-06-25] MEDS: NICOTINE 21 MG/24 HOURS TOPICAL PATCH TD SCH (10:22)
[2016-06-25] MEDS: MIRTAZAPINE 30 MG TABLET (FP) PO SCH (21:16)
[2016-06-25] MEDS: THIAMINE HCL 100 MG TABLET (FP) PO SCH (21:16)
[2016-06-26] MEDS: PRENATAL VITAMINS W/ FOLIC ACID TABLET (FP) PO SCH (10:04)
[2016-06-26] MEDS: cloNIDine HCL 0.1 MG TABLET PO SCH ×2 (10:04→21:54)
[2016-06-26] MEDS: NICOTINE 21 MG/24 HOURS TOPICAL PATCH TD SCH (10:04)
[2016-06-26] MEDS: MIRTAZAPINE 30 MG TABLET (FP) PO SCH (21:54)
[2016-06-26] MEDS: THIAMINE HCL 100 MG TABLET (FP) PO SCH (21:54)
[2016-06-27] MEDS: NICOTINE 21 MG/24 HOURS TOPICAL PATCH TD SCH (10:10)
[2016-06-27] MEDS: PRENATAL VITAMINS W/ FOLIC ACID TABLET (FP) PO SCH (10:10)
[2016-06-27] MEDS: cloNIDine HCL 0.1 MG TABLET PO SCH ×2 (10:10→21:31)
[2016-06-27] MEDS: THIAMINE HCL 100 MG TABLET (FP) PO SCH (21:31)
[2016-06-27] MEDS: MIRTAZAPINE 30 MG TABLET (FP) PO SCH (21:31)
[2016-06-28] MEDS: PRENATAL VITAMINS W/ FOLIC ACID TABLET (FP) PO SCH (09:53)
[2016-06-28] MEDS: cloNIDine HCL 0.1 MG TABLET PO SCH ×2 (09:53→21:20)
[2016-06-28] MEDS: NICOTINE 21 MG/24 HOURS TOPICAL PATCH TD SCH (09:54)
[2016-06-28] MEDS: MIRTAZAPINE 30 MG TABLET (FP) PO SCH (21:20)
[2016-06-28] MEDS: THIAMINE HCL 100 MG TABLET (FP) PO SCH (21:20)
[2016-06-29] MEDS: cloNIDine HCL 0.1 MG TABLET PO SCH ×2 (10:17→21:34)
[2016-06-29] MEDS: PRENATAL VITAMINS W/ FOLIC ACID TABLET (FP) PO SCH (10:17)
[2016-06-29] MEDS: NICOTINE 21 MG/24 HOURS TOPICAL PATCH TD SCH (10:18)
[2016-06-29] MEDS: THIAMINE HCL 100 MG TABLET (FP) PO SCH (21:34)
[2016-06-29] MEDS: MIRTAZAPINE 30 MG TABLET (FP) PO SCH (21:34)
[2016-06-30 07:24] VITALS: BP 121/82; PULSE 72; TEMP 97.3
[2016-06-30] MEDS: cloNIDine HCL 0.1 MG TABLET PO SCH (09:56)
[2016-06-30] MEDS: NICOTINE 21 MG/24 HOURS TOPICAL PATCH TD SCH (09:56)
[2016-06-30] MEDS: PRENATAL VITAMINS W/ FOLIC ACID TABLET (FP) PO SCH (09:56)
--- NOTE | 2016-06-30 10:35 | PN ---
Psychiatric Progress Note Vital Signs: Vital Signs Period Temp Pulse Resp BP Sys/Brock Pulse Ox Last 24 Hr 97.3 F 69-79 16-16 108-121/77-82 Date of Session: 06/30/16 Chief Complaint:: discharge visit HPI: Patient has addressed opioid, nicotine dependence opioid induced anxiety. ROS: asthma medically managed. Current Medications: Active Medications Generic Name Dose Route Start Last Admin Trade Name Freq PRN Reason Stop Dose Admin Acetaminophen 650 mg 06/11/16 15:46 Tylenol - PO Q4H PRN FEVER OR PAIN Al Hydroxide/Mg Hydroxide 30 ml 06/11/16 15:46 Mylanta Oral Suspension - PO Q6H PRN DYSPEPSIA Albuterol Sulfate 2 puff 06/11/16 15:49 06/15/16 21:43 Ventolin Hfa Inhaler - IH 2 puff Q4H PRN Administration ASTHMA Clonidine 0.1 mg 06/12/16 22:00 06/30/16 09:56 Catapres - PO 0.1 mg BID LISHA Administration Diphenhydramine HCl 50 mg 06/11/16 15:46 06/12/16 21:39 Benadryl - PO 50 mg HSMR1 PRN Administration FOR ITCHING Eucalyptus/Menthol/Phenol/Sorbitol 1 each 06/11/16 15:46 Cepastat Lozenge - MM Q4H PRN SORE THROAT Guaifenesin 10 ml 06/11/16 15:46 Robitussin Dm - PO Q6H PRN COUGH Hydroxyzine Pamoate 50 mg 06/12/16 15:40 Vistaril - PO Q4H PRN ANXIETY Ibuprofen 400 mg 06/11/16 15:46 06/18/16 21:14 Motrin - PO 400 mg Q6H PRN Administration PAIN Loperamide HCl 4 mg 06/11/16 15:46 Imodium - PO Q6H PRN DIARRHEA Magnesium Hydroxide 30 ml 06/11/16 15:46 Milk Of Magnesia - PO DAILY PRN CONSTIPATION Mirtazapine 30 mg 06/16/16 22:00 06/29/16 21:34 Remeron - PO 30 mg HS LISHA Administration Nicotine 21 mg 06/11/16 16:00 06/30/16 09:56 Nicoderm Patch - TD Not Given DAILY LISHA Nicotine Polacrilex 2 mg 06/11/16 15:46 Nicorette Gum - BUC Q2H PRN NICOTINE REPLACEMENT RX Multivit/Folic Acid/Iron 1 tab 06/12/16 10:00 06/30/16 09:56 Vitamins (Sjr) - PO 1 tab DAILY LISHA Administration Pseudoephedrine/Triprolidine 1 combo 06/11/16 15:46 Actifed - PO TID PRN NASAL CONGESTION Thiamine HCl 100 mg 06/11/16 22:00 06/29/16 21:34 Vitamin B1 - PO 100 mg HS LISHA Administration Current Side Effect: No Lab tests ordered: No Lab tests reviewed: Yes Provider note:: Patient has completed today his treatment and met his goals, will continue to address his issues at [facility]. Patient gained insights into his problems, understands the negative consequenses addiction and motivated to continue maintain abstinence. Patient was provided with scripts , he is stable for discharge. Mental Status Exam - Mental Status Exam Alert and Oriented to: Time, Place, Person Cognitive Function: Good Patient Appearance: Well Groomed Mood: Hopeful Affect: Appropriate, Mood Congruent Patient Behavior: Appropriate, Cooperative Speech Pattern: Clear, Appropriate Voice Loudness: Normal Thought Process: Intact, Goal Oriented Thought Disorder: Not Present Hallucinations: Denies Suicidal Ideation: Denies Homicidal Ideation: Denies Insight/Judgement: Fair Sleep: Fair Appetite: Good Muscle strength/Tone: Normal Gait/Station: Normal Psychiatric Treatment Plan - Problem List (1) Asthma Current Visit: No (2) Nicotine dependence Current Visit: No Qualifiers: Nicotine product type: cigarettes Substance use status: uncomplicated Qualified Code(s): F17.210 - Nicotine dependence, cigarettes, uncomplicated (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
== END 2016-06-30 10:35 | disposition home or self-care (01) | DRG 772 ==
LOC: YASAS 11:56 → Y5N 11:57
PROVIDERS: ADMIT Psychiatry & Neurology Psychiatry; ATTEND Psychiatry & Neurology Psychiatry
PROC: HZ42ZZZ Group Counseling for Substance Abuse Treatment, Cognitive-Behavioral (ICD-10-PCS; principal; 2016-06-30)
DX: F11.20 Opioid dependence, uncomplicated (principal); F17.210 Nicotine dependence, cigarettes, uncomplicated; F19.280 Other psychoactive substance dependence with psychoactive substance-induced anxiety disorder; J45.909 Unspecified asthma, uncomplicated

== ENCOUNTER 2020-01-16 12:56 | Inpatient (IN) | payer OTHER ==
--- OUTSIDE RECORDS SUMMARY | 2020-01-16 13:04 | XMS ---
:1980 Author Organization [facility] Support Name Relationship Address Phone UE Unavailable Unavailable Unavailable MARCELA [place] [address] Re-disclosure Warning The records that you are about to access may contain information from federally- assisted alcohol or drug abuse programs. If such information is present, then the following federally mandated warning applies: This information has been disclosed to you from records protected by federal confidentiality rules (42 CFR part 2). The federal rules prohibit you from making any further disclosure of this information unless further disclosure is expressly permitted by the written consent of the person to whom it pertains or as otherwise permitted by 42 CFR part 2. A general authorization for the release of medical or other information is NOT sufficient for this purpose. The Federal rules restrict any use of the information to criminally investigate or prosecute any alcohol or drug abuse patient.The records that you are about to access may contain highly sensitive health information, the redisclosure of which is protected by Article 27-F of the [facility] Public Health law. If you continue you may haveaccess to information: Regarding HIV / AIDS; Provided by facilities licensed or operated by the [facility] Office of Mental Health; or Provided by the [facility] Office for People With Developmental Disabilities. If such information is present, then the following [facility] mandated warning applies: This information has been disclosed to you from confidential records which are protected by state law. State law prohibits you from making any further disclosure of this information without the specific written consent of the person to whom it pertains, or as otherwise permitted by law. Any unauthorized further disclosure in violation of state law may result in a fine or assisted sentence or both. A general authorization for the release of medical or other information is NOT sufficient authorization for further disclosure. Insurance Providers Payer name Policy type Policy ID Covered Covered green party's Policy P jamil / Coverage green party ID relationship to [employer] ormation type devine HEALTH [id number] FIRST
--- NOTE | 2020-01-16 14:16 | BHS.RME ---
Substance Use & Tx History - Substance Use History Heroin Substance amount: 2 bundles Frequency of use: Daily Substance route: Inhalation (ex: sniffing or snorting), Injection (ex: intravenous or skin popping) Date of Last Use: 01/16/20 Cocaine- Powder Substance amount: one gram Frequency of use: Daily Substance route: Inhalation (ex: sniffing or snorting), Injection (ex: intravenous or skin popping) Date of Last Use: 01/15/20 Marijuana/Hashish Substance amount: one joint Frequency of use: Less than 3 times per week Substance route: Smoking Date of Last Use: 01/15/20 Nicotine Substance amount: 1o cigs Frequency of use: Daily Substance route: Smoking Date of Last Use: 01/16/20 - Last Treatment Date of last treatment: May to June 2016 Physical/Psych/Mental Status - Behavior General Behavior: Decreased activity Eye Contact: Normal - Cooperativeness Cooperativeness: Cooperative - Thinking Thought Processes: Tight Thought content: Future oriented - Physical Health Problems Is patient presently having any pain?: No Does patient presently have any injuries (include location): No Does patient currently have a fever: No COWS - Scale Resting Pulse: 0= [place] 80 or Below Sweatin= No chills or Flushing Restless Observation: 0= Sits Still Pupil Size: 0= Normal to Room Light Bone or Joint Aches: 1= Mild Discomfort Runny Nose/ Eye Tearin= Runny Nose/Eyes GI Upset > 30mins: 1= Stomach Cramp Tremor Observation: 2= Slight Tremor Visible Yawning Observation: 0= None Anxiety or Irritability: 1=Feels Anxious/Irritable Goose Flesh Skin: 0=Smooth Skin COWS Score: 7
[2020-01-16 15:46] VITALS: BMI 19.4
--- NOTE | 2020-01-16 16:16 | HP ---
COWS - Scale Resting Pulse: 0= [place] 80 or Below Sweatin=Flushed/Facial Moisture Restless Observation: 1= Difficult to Sit Still Pupil Size: 2= Moderately Dilated Bone or Joint Aches: 1= Mild Discomfort Runny Nose/ Eye Tearin= Runny Nose/Eyes GI Upset > 30mins: 1= Stomach Cramp Tremor Observation: 2= Slight Tremor Visible Yawning Observation: 0= None Anxiety or Irritability: 1=Feels Anxious/Irritable Goose Flesh Skin: 0=Smooth Skin COWS Score: 12 CIWA Score - Admission Criteria OASAS Guidelines: Admission for Medically Managed Detox: Requires at least one of the followin. CIWA greater than 12 2. Seizures within the past 24 hours 3. Delirium tremens within the past 24 hours 4. Hallucinations within the past 24 hours 5. Acute intervention needed for co occurring medical disorder 6. Acute intervention needed for co occurring psychiatric disorder 7. Severe withdrawal that cannot be handled at a lower level of care (continued vomiting, continued diarrhea, abnormal vital signs) requiring intravenous medication and/or fluids 8. Admitting History and Physical - Smoking History Smoking history: Current every day smoker Have you smoked in the past 12 months: Yes Aproximately how many cigarettes per day: 10 - Alcohol/Substance Use Hx Alcohol Use: No Admission ROS BHS - HPI Chief Complaint: " Here for detox to get detox and help for my drug use" Allergies/Adverse Reactions: Allergies Allergy/AdvReac Type Severity Reaction Status Date / Time No Known Allergies Allergy Verified 01/16/20 16:42 History of Present Illness: 39 yo presents w/ opioid withdrawal symptoms, seeking detox. Seizure - 3 months ago - states unknown reason and all tests were negative. Hx 2 overdoses - last about 1 yr ago. KATTY: 0.0 UTox: + THC/PRATIBHA/FLY/MOR Heroin use began at age 32. Currently using 2 bundle/day.Snorts and IV. Denies sharing needles and works. Has a Narcan kit @ home. Cocaine use began at age 37. Uses w/ heroin. Marijuana use began at age 14. 1 joint 3x/wk. Nicotine use began at age 14. Smokes 1/2 PPD. PMHx; Asthma - last exacerbation 5 yrs ago. Hx migraines MHHx: Denies MH issues. Denies thoughts of harming self or others. SHx: Domiciled. Unemployed. Denies lega issues. Search Terms: Cl Gaston, 1980 Search Date: 01/16/2020 16:13:36 PM The Drug Utilization Report below displays all of the controlled substance prescriptions, if any, that your patient has filled in the last twelve months. The information displayed on this report is compiled from pharmacy submissions to the Department, and accurately reflects the information as submitted by the pharmacies. This report was requested by: Niharika Joe | Reference #: [id number] There are no results for the search terms that you entered. Exam Limitations: No Limitations - Ebola screening Have you traveled outside of the country in the last 21 days: No (Denies COVID exposure) Have you had contact with anyone from an Ebola affected area: No Have you been sick,other than usual withdrawal symptoms: No Do you have a fever: No - Review of Systems Constitutional: Chills, Weight Stable EENT: reports: Blurred Vision, Nose Congestion Respiratory: reports: No Symptoms reported Cardiac: reports: No Symptoms Reported GI: reports: No Symptoms Reported : reports: No Symptoms Reported Musculoskeletal: reports: Back Pain (r/t withdrawal), Muscle Pain (r/t withdrawal) Integumentary: reports: No Symptoms Reported Neuro: reports: Headache (Frontal headache "7". Hx migraines. Denies head injuryy.), Seizure, Tremors Endocrine: reports: Increased Thirst Hematology: reports: No Symptoms Reported Psychiatric: reports: Judgement Intact, Orientated x3, Agitated, Anxious Patient History - Patient Medical History Hx Anemia: No Hx Asthma: Yes Hx Chronic Obstructive Pulmonary Disease (COPD): No Hx Cancer: No Hx Cardiac Disorders: No Hx Congestive Heart Failure: No Hx Hypertension: No Hx Hypercholesterolemia: No Hx Pacemaker: No HX Cerebrovascular Accident: No Hx Seizures: No Hx Dementia: No Hx Diabetes: No Hx Gastrointestinal Disorders: No Hx Liver Disease: No Hx Genitourinary Disorders: No Hx Sexually Transmitted Disorders: No Hx Renal Disease (ESRD): No Hx Thyroid Disease: No Hx Human Immunodeficiency Virus (HIV): No (NEG 04/2016) Hx Hepatitis C: No Hx Depression: No Hx Suicide Attempt: No Hx Bipolar Disorder: No Hx Schizophrenia: No - Patient Surgical History Past Surgical History: No Hx Neurologic Surgery: No Hx Cataract Extraction: No Hx Cardiac Surgery: No Hx Lung Surgery: No Hx Breast Surgery: No Hx Breast Biopsy: No Hx Abdominal Surgery: No Hx Appendectomy: No Hx Cholecystectomy: No Hx Genitourinary Surgery: No Hx Section: No Hx Orthopedic Surgery: No Other Surgical History: spinal sx.CERVICAL FUSION Anesthesia Reaction: No - PPD History Previous Implant?: Yes Documented Results: Negative w/o proof Implanted On Prior [facility] Admission?: Yes Results: 0 mm PPD to be Administered?: Yes - Smoking Cessation Smoking history: Current every day smoker Have you smoked in the past 12 months: Yes Aproximately how many cigarettes per day: 10 Cigars Per Day: 0 Hx Chewing Tobacco Use: No Initiated information on smoking cessation: Yes 'Breaking Loose' booklet given: 01/16/20 - Substance & Tx. History Hx Alcohol Use: No Hx Substance Use: Yes Substance Use Type: Cocaine, Heroin, Marijuana, Opiates Hx Substance Use Treatment: Yes (detox, rehabs, past MMTP) Admission Physical Exam S - Vital Signs Vital Signs: Vital Signs - 24 hr 01/16/20 15:40 Temperature 97.2 F L Pulse Rate 76 Respiratory 20 Rate Blood Pressure 101/58 L - Physical General Appearance: Yes: Nourished, Mild Distress, Thin, Sweating, Anxious HEENTM: Yes: EOMI, Hearing grossly Normal, Normocephalic, Normal Voice, RAZ (Pupils = 4 mm), Pharynx Normal, Nasal Congestion, Rhinorrhea Respiratory: Yes: Lungs Clear (Pulse Ox = 96%), Normal Breath Sounds, No Respiratory Distress Neck: Yes: No masses,lesions,Nodules, Supple Breast: Yes: Breast Exam Deferred Cardiology: Yes: Regular Rhythm, Regular Rate, S1, S2 Abdominal: Yes: Non Tender, Flat, Soft, Increased Bowel Sounds Genitourinary: Yes: Within Normal Limits Back: Yes: Normal Inspection Musculoskeletal: Yes: full range of Motion, Gait Steady Extremities: Yes: Normal Capillary Refill, Tremors Neurological: Yes: senior revenue accountant II-XII NML intact, Fully Oriented, Alert, Motor Strength 5/5, Normal Mood/Affect Integumentary: Yes: Normal Color, Warm, Track Sinclair (Demario antecubital track masks. No increased warmth or erythema.) Lymphatic: Yes: Within Normal Limits - Diagnostic (1) Opioid dependence with withdrawal Current Visit: Yes Status: Acute (2) Cannabis dependence, uncomplicated Current Visit: Yes Status: Chronic (3) Cocaine dependence, uncomplicated Current Visit: Yes Status: Chronic (4) Nicotine dependence, unspecified, uncomplicated Current Visit: Yes Status: Chronic Qualifiers: Nicotine product type: cigarettes Qualified Code(s): F17.210 - Nicotine dependence, cigarettes, uncomplicated (5) History of asthma Current Visit: Yes Status: Chronic (6) Hx of migraine headaches Current Visit: Yes Status: Chronic (7) Track sinclair due to intravenous drug abuse Current Visit: Yes Status: Chronic Cleared for Admission [facility] - Detox or Rehab [facility] Level of Care: Medically Managed Detox Regimen/Protocol: Methadone Claeared for Rehab Admission: No Breathalyzer - Breathalyzer Breathalyzer: 0 Urine Drug Screen - Test Device Lot number: [id number] Expiration date: 07/15/21 - Control Is test valid?: Yes - Results Drug screen NEGATIVE: No Urine drug screen results: THC-Marijuana, PRATIBHA-Cocaine, FEN-Fentanyl, MOP-Opiates Inpatient Rehab Admission - Rehab Decision to Admit Inpatient rehab admission?: No
--- OUTSIDE RECORDS SUMMARY | 2020-01-16 16:34 | XMS ---
:1980 Author Organization [facility] Support Name Relationship Address Phone UE Unavailable Unavailable Unavailable MARC[place] [address] Re-disclosure Warning The records that you are [...] is protected by Article 27-F of the [facility] Public Health law. If you continue you may haveaccess to information: Regarding HIV / AIDS; Provided by facilities licensed or operated by the [facility] Office of Mental Health; or Provided by the [facility] Office for People With Developmental Disabilities. If such information is present, then the following [facility] mandated warning applies: This information has been [...] law may result in a fine or fci sentence or both. A general authorization for the release of medical or other information is NOT sufficient authorization for further disclosure. Insurance Providers Payer name Policy type Policy ID Covered Covered republican's Policy P jamil / Coverage republican ID relationship to [employer] ormation type dev[employer] HEALTH [id number] FIRST
[2020-01-16] MEDS ORDERED: cloNIDine HCL 0.1 MG TABLET PO PRN (16:38)
[2020-01-16] MEDS ORDERED: METHOCARBAMOL 500 MG TABLET PO PRN (16:38)
[2020-01-16] MEDS ORDERED: BISMUTH SUBSALICYLATE 524 MG/30 ML UD PO PRN (16:38)
[2020-01-16] MEDS ORDERED: ONDANSETRON *ODT* 4 MG TABLET SL PRN (16:38)
[2020-01-16] MEDS ORDERED: MAGNESIUM CITRATE 300 ML BOTTLE PO PRN (16:38)
[2020-01-16] MEDS ORDERED: ACETAMINOPHEN 325 MG TABLET (FP) PO PRN ×2 (16:38)
[2020-01-16] MEDS ORDERED: MENTHOL/PHENOL 1 EACH UD MM PRN (16:38)
[2020-01-16] MEDS ORDERED: MAGNESIUM HYDROX 2400MG/30ML ORAL SUSPENSION 30 ML CUP PO PRN (16:38)
[2020-01-16] MEDS ORDERED: IBUPROFEN 400 MG TABLET (FP) PO PRN (16:38)
[2020-01-16] MEDS ORDERED: MAG HYDROX/AL HYDROX/SIMETH 30 ML UNIT-DOSE CUP PO PRN (16:38)
[2020-01-16] MEDS ORDERED: NICOTINE POLACRILEX 2 MG GUM BUC PRN (16:38)
[2020-01-16] MEDS ORDERED: ALBUTEROL SO4 HFA INHALER IH PRN (16:43)
[2020-01-16] MEDS ORDERED: METHADONE HCL 10 MG TABLET (FOR DETOX USE ONLY) PO ONE ×2 (18:09→20:00)
[2020-01-16] MEDS ORDERED: THIAMINE HCL 100 MG TABLET (FP) PO SCH (22:00)
[2020-01-16] MEDS ORDERED: MELATONIN 5 MG TABLETS PO SCH (22:00)
[2020-01-17] MEDS ORDERED: METHADONE HCL 10 MG TABLET (FOR DETOX USE ONLY) ONE (09:44)
[2020-01-17] MEDS ORDERED: METHADONE HCL 5 MG TABLET (FOR DETOX USE ONLY) ONE (09:44)
[2020-01-17] MEDS ORDERED: NICOTINE 14 MG/24 HOURS TOPICAL PATCH TD SCH (10:00)
[2020-01-17] MEDS ORDERED: METHADONE (DETOX) 20 MG, METHADONE (DETOX) 5 MG PO ONE (10:00)
[2020-01-17] MEDS ORDERED: PRENATAL VITAMINS W/ FOLIC ACID TABLET (FP) PO SCH (10:00)
[2020-01-17 12:03] LABS: HEMATOCRIT 43.6 % (35.4-49); HEMOGLOBIN 14.9 GM/dL (11.7-16.9); MCH 31.6 pg (25.7-33.7); MCHC 34.1 g/dl (32.0-35.9); MEAN CELL VOLUME 92.7 fl (80-96); PLATELET COUNT 320 K/MM3 (134-434); RBC 4.71 M/mm3 (4.00-5.60); RDW 12.8 % (11.9-15.9); WHITE BLOOD COUNT 7.6 K/mm3 (4.0-10.0)
[2020-01-17 12:11] LABS: ALBUMIN 3.6 g/dl (3.4-5.0); BILIRUBIN,TOTAL 0.9 mg/dL (0.2-1); BLOOD UREA NITROGEN 10.6 mg/dL (7-18); CALCIUM 9.4 mg/dL (8.5-10.1); POTASSIUM 4.2 mmol/L (3.5-5.1); TOT PROT 7.9 g/dl (6.4-8.2)
--- NOTE | 2020-01-17 13:04 | PN ---
BHS COWS - Scale Resting Pulse: 0= [place] 80 or Below Sweatin= Chills/Flushing Restless Observation: 1= Difficult to Sit Still Pupil Size: 0= Normal to Room Light Bone or Joint Aches: 2= Severe Diffuse Aches Runny Nose/ Eye Tearin= None GI Upset > 30mins: 0= None Tremor Observation of Outstretched Hands: 1= Tremor Carnegie, Not Seen Yawning Observation: 1= 1-2x During Session Anxiety or Irritability: 2=Irritable/Anxious Goose Flesh Skin: 0=Smooth Skin COWS Score: 8 BHS Progress Note (SOAP) Subjective: Complaints of chills, sweats, irritability, and body aches. Objective: 01/17/20 13:03 Vital Signs 01/17/20 01/17/20 06:20 09:10 Temperature 98.2 F 97.1 F L Pulse Rate 68 66 Respiratory 18 18 Rate Blood Pressure 119/66 107/65 O2 Sat by Pulse 99 Oximetry (%) Laboratory Last Values WBC 7.6 K/mm3 (4.0-10.0) 01/17/20 07:30 RBC 4.71 M/mm3 (4.00-5.60) 01/17/20 07:30 Hgb 14.9 GM/dL (11.7-16.9) 01/17/20 07:30 Hct 43.6 % (35.4-49) 01/17/20 07:30 MCV 92.7 fl (80-96) 01/17/20 07:30 MCH 31.6 pg (25.7-33.7) 01/17/20 07:30 MCHC 34.1 g/dl (32.0-35.9) 01/17/20 07:30 RDW 12.8 % (11.9-15.9) 01/17/20 07:30 Plt Count 320 K/MM3 (134-434) D 01/17/20 07:30 MPV 8.0 fl (7.5-11.1) 01/17/20 07:30 Sodium 136 mmol/L (136-145) 01/17/20 07:30 Potassium 4.2 mmol/L (3.5-5.1) 01/17/20 07:30 Chloride 100 mmol/L (98-107) 01/17/20 07:30 Carbon Dioxide 31 mmol/L (21-32) 01/17/20 07:30 Anion Gap 4 MMOL/L (8-16) L 01/17/20 07:30 BUN 10.6 mg/dL (7-18) 01/17/20 07:30 Creatinine 1.0 mg/dL (0.55-1.3) 01/17/20 07:30 Est GFR (CKD-EPI)AfAm 108.63 01/17/20 07:30 Est GFR (CKD-EPI)NonAf 93.73 01/17/20 07:30 Random Glucose 96 mg/dL (74-106) 01/17/20 07:30 Calcium 9.4 mg/dL (8.5-10.1) 01/17/20 07:30 Total Bilirubin 0.9 mg/dL (0.2-1) 01/17/20 07:30 AST 18 U/L (15-37) 01/17/20 07:30 ALT 32 U/L (13-61) 01/17/20 07:30 Alkaline Phosphatase 103 U/L (45-117) 01/17/20 07:30 Total Protein 7.9 g/dl (6.4-8.2) 01/17/20 07:30 Albumin 3.6 g/dl (3.4-5.0) 01/17/20 07:30 Syphilis Serology Non-reactive (NONREACTIVE) 01/17/20 07:30 Labs noted. Assessment: 01/17/20 13:04 Patient seen and examined, alert and oriented x3, in acute respiratory distress. Full ROM, ambulatory in the unit without assistance. Skin warm to touch without lesions. Mild withdrawal symptoms. Plan: continue detox protocol.
--- NOTE | 2020-01-17 17:48 | DS ---
[facility] Detox Discharge Summary Admission Date: 01/16/20 Discharge Date: 01/17/20 (Pt left AMA) - History Present History: Cannabis Dependence, Cocaine Dependence, Opioid Dependence Additional Comments: Pt left AMA. Pt did not complete the detox protocol. Pt states, "I can't do this anymore, i have to leave". An attempt to let pt stay and complete the detox protocol failed. Pt is encouraged to follow-up with an outpatient CD program and also to follow-up with his pmd but was adamant to the information given. Pt is alert, oriented x3, in no acute respiratory distress, Full ROM, and ambulatory. Pertinent Past History: h/o cocaine, heroin, and cannabis use disorder. - Physical Exam Results Vital Signs: Vital Signs Temperature 98.1 F 01/17/20 13:10 Pulse Rate 75 01/17/20 13:10 Respiratory Rate 18 01/17/20 13:10 Blood Pressure 92/70 01/17/20 13:10 O2 Sat by Pulse Oximetry (%) 100 01/17/20 13:10 Lab Results WBC 7.6 K/mm3 (4.0-10.0) 01/17/20 07:30 RBC 4.71 M/mm3 (4.00-5.60) 01/17/20 07:30 Hgb 14.9 GM/dL (11.7-16.9) 01/17/20 07:30 Hct 43.6 % (35.4-49) 01/17/20 07:30 MCV 92.7 fl (80-96) 01/17/20 07:30 MCHC 34.1 g/dl (32.0-35.9) 01/17/20 07:30 RDW 12.8 % (11.9-15.9) 01/17/20 07:30 Plt Count 320 K/MM3 (134-434) D 01/17/20 07:30 Sodium 136 mmol/L (136-145) 01/17/20 07:30 Potassium 4.2 mmol/L (3.5-5.1) 01/17/20 07:30 Chloride 100 mmol/L (98-107) 01/17/20 07:30 Carbon Dioxide 31 mmol/L (21-32) 01/17/20 07:30 Anion Gap 4 MMOL/L (8-16) L 01/17/20 07:30 BUN 10.6 mg/dL (7-18) 01/17/20 07:30 Creatinine 1.0 mg/dL (0.55-1.3) 01/17/20 07:30 Random Glucose 96 mg/dL (74-106) 01/17/20 07:30 Calcium 9.4 mg/dL (8.5-10.1) 01/17/20 07:30 Labs noted. Pertinent Admission Physical Exam Findings: withdrawal symptoms. - Treatment Hospital Course: Detox Protocol Followed - Medication Discharge Medications: Ambulatory Orders Albuterol Sulfate Inhaler - [Ventolin HFA Inhaler -] 2 inh PO Q4H PRN #1 inhaler 06/29/16 - Diagnosis (1) Opioid dependence with withdrawal Current Visit: Yes Status: Acute (2) Cannabis dependence, uncomplicated Current Visit: Yes Status: Chronic (3) Cocaine dependence, uncomplicated Current Visit: Yes Status: Chronic (4) History of asthma Current Visit: Yes Status: Chronic (5) Nicotine dependence Current Visit: No Status: Chronic Qualifiers: Nicotine product type: cigarettes Substance use status: uncomplicated Qualified Code(s): F17.210 - Nicotine dependence, cigarettes, uncomplicated - AMA Did Patient Leave Against Medical Advice: Yes
[2020-01-17 18:12] VITALS: BP 130/67; PULSE 63; TEMP 98.4
--- NOTE | 2020-01-18 07:14 | EKG ---
Test Reason : Blood Pressure : / mmHG Vent. Rate : 066 BPM Atrial Rate : 066 BPM P-R Int : 140 ms QRS Dur : 094 ms QT Int : 394 ms P-R-T Axes : 078 087 064 degrees QTc Int : 413 ms NORMAL SINUS RHYTHM NORMAL ECG WHEN COMPARED WITH ECG OF 06-JUN-2016 18:50, NO SIGNIFICANT CHANGE WAS FOUND Confirmed by MARTIN HEREDIA MD ([id number]) on 01/18/2020 7:13:27 AM Referred By: Confirmed By:MARTIN HEREDIA MD
[2020-01-18] MEDS ORDERED: METHADONE HCL 10 MG TABLET (FOR DETOX USE ONLY) PO ONE (10:00)
[2020-01-19] MEDS ORDERED: METHADONE (DETOX) 10 MG, METHADONE (DETOX) 5 MG PO ONE (10:00)
[2020-01-20] MEDS ORDERED: METHADONE HCL 10 MG TABLET (FOR DETOX USE ONLY) PO ONE (10:00)
[2020-01-21] MEDS ORDERED: METHADONE HCL 5 MG TABLET (FOR DETOX USE ONLY) PO ONE ×2 (06:00)
== END 2020-01-17 17:37 | disposition left against medical advice (07) | DRG 770 ==
LOC: YASAS 12:56 → Y6N 16:29
PROVIDERS: ADMIT Allergy & Immunology; ATTEND Allergy & Immunology
PROC: HZ2ZZZZ Detoxification Services for Substance Abuse Treatment (ICD-10-PCS; principal; 2020-01-16)
DX: F11.23 Opioid dependence with withdrawal (principal); F14.20 Cocaine dependence, uncomplicated; F12.20 Cannabis dependence, uncomplicated; F17.210 Nicotine dependence, cigarettes, uncomplicated; Z98.1 Arthrodesis status; Z87.09 Personal history of other diseases of the respiratory system; Z86.69 Personal history of other diseases of the nervous system and sense organs
CPT/HCPCS: 36415; 80053; 85027; 86780; 93005; 93010; C9803; J0735; U0003